=== PATIENT | male | born 1975 | race African-American/Black ===

== ENCOUNTER 2017-10-24 08:53 | Emergency (ER) | payer SELFPAY ==
--- NOTE | 2017-10-24 10:15 | RAD ---
PA AND LATERAL CHEST: History: Cough. FINDINGS: The heart size is normal. The lungs are expanded without focal areas of consolidation, pneumothorax, or pleural effusions. No acute osseous abnormalities are seen. IMPRESSION: No radiographic evidence of acute cardiopulmonary process. POS: [facility]
== END 2017-10-24 10:10 | disposition home or self-care (01) ==
LOC: ERS 08:53
DX: J40 Bronchitis, not specified as acute or chronic (principal); I10 Essential (primary) hypertension; F17.210 Nicotine dependence, cigarettes, uncomplicated
CPT/HCPCS: 71046; 87081; 87430; 87804

== ENCOUNTER 2018-09-23 06:15 | Emergency (ER) | payer SELFPAY | END 2018-09-23 10:07 | disposition left against medical advice (07) | LOC: ERS 06:15 | DX: Z53.21 Procedure and treatment not carried out due to patient leaving prior to being seen by health care provider (principal) | CPT/HCPCS: 93005 ==

== ENCOUNTER 2019-01-17 23:02 | Emergency (ER) | payer SELFPAY ==
[~2019-01-17 23:02] MED LIST: ISOVUE-370 76%-LOCM 1 ML ONE
[2019-01-17 23:19] LABS: #Basophils 0.1 thou/uL (0.0-0.2); #Eosinphils 0.5 thou/uL (0.0-0.7); #Lymphocytes 2.1 thou/uL (1.20-3.40); #Monocytes 0.5 thou/uL (0.11-0.59); #Neutrophils 3.4 thou/uL (1.40-6.50); %Basophils 1.5 % (0.0-1.0); %Eosinophils 8.1 % (0.0-10.0); %Lymphocytes 31.4 % (21.0-51.0); %Monocytes 7.6 % (0.0-10.0); %Neutrophils 51.4 % (42.0-75.0); Hemoglobin 15.3 g/dL (14.0-18.0); Mean Corpuscular HGB CONC 35.3 g/dL (32.0-36.0); Mean Corpuscular Hemoglobin 28.9 pg (27.0-31.0); Mean Corpuscular Volume 81.7 fL (78.0-98.0); Platelet Count 227 thou/uL (130-400); RBC Distribution Width 12.8 % (11.5-14.5); White Blood Cell (WBC) Count 6.7 thou/uL (4.8-10.8)
[2019-01-17 23:25] LABS: INR-International Normal Ratio 0.9; PTT 27.3 SEC (22.9-36.1); Prothrombin Time 12.2 SEC (12.0-14.7)
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
[2019-01-17 23:41] LABS: ALT (SGPT) 24 U/L (8-55); AST (SGOT) 27 U/L (5-34); Albumin 4.5 g/dL (3.5-5.0); Alkaline Phosphatase 114 U/L (40-150); Anion Gap 15 mmol/L (10-20); BUN (Urea Nitrogen) 17 mg/dL (8.9-20.6); Bilirubin, Total 0.2 mg/dL (0.2-1.2); Calc. Creatinine Clearance 0 mL/min (70-130); Calcium 9.9 mg/dL (7.8-10.44); Carbon Dioxide 23 mmol/L (22-29); Chloride 104 mmol/L (98-107); Estimated GFR-MDRD 89; Globulin 3.9 g/dL (2.4-3.5); Glucose 101 mg/dL (70-105); Potassium 3.4 mmol/L (3.5-5.1); Protein, Total 8.4 g/dL (6.0-8.3); Sodium 139 mmol/L (136-145)
== END 2019-01-18 00:30 | disposition home or self-care (01) ==
LOC: ERS 23:02
DX: S31.010A Laceration without foreign body of lower back and pelvis without penetration into retroperitoneum, initial encounter (principal); F17.200 Nicotine dependence, unspecified, uncomplicated; X99.1XXA Assault by knife, initial encounter
CPT/HCPCS: 12001; 71260; 74177; 80053; 85025; 85610; 85730; 86850; 86900; 86901; G0390; Q9966

== ENCOUNTER 2022-06-03 09:06 | Emergency (ER) | payer SELFPAY ==
[2022-06-03] MEDS ORDERED: hydrALAZINE 20 MG/ML VIAL ONE (09:19)
[2022-06-03 09:36] LABS: Actual Bicarbonate (HCO3a) 24.7 mEq/L (22-28); Base Excess (BEa) -1.8 mEq/L (-2.0 to +3.0); CO2 Tension 48.8 mmHg (35.0-45.0); Calcium, Ionized (arterial) 1.08 mmol/L (1.12-1.30); Carboxyhemoglobin (COHb) 10.6 gm% (0.0-3.0); Hemoglobin (Hb) 14.4 g/dL (14.0-18.0); Potassium - ABG Lab 3.13 mmol/L (3.70-5.30); pH, Arterial 7.32 (7.35-7.45)
[2022-06-03 09:37] LABS: Puncture Site LBA
[2022-06-03 09:44] LABS: #Lymphocytes 1.4 thou/uL (1.20-3.40); #Monocytes 0.7 thou/uL (0.11-0.59); #Neutrophils 5.5 thou/uL (1.40-6.50); %Basophils 0.4 % (0.0-1.0); %Eosinophils 0.1 % (0.0-10.0); %Monocytes 8.7 % (0.0-10.0); %Neutrophils 72.8 % (42.0-75.0); Hemoglobin 14.1 g/dL (14.0-18.0); Mean Corpuscular Hemoglobin 29.7 pg (27.0-31.0); Mean Corpuscular Volume 84.8 fl (78.0-98.0); Mean Platelet Volume 10.1 fL (7.4-10.4); Platelet Count 168 10x3/uL (130-400); RBC Distribution Width 13.1 % (11.5-14.5); Red Blood Cell (RBC) Count 4.75 mill/uL (4.70-6.10); White Blood Cell (WBC) Count 7.6 10x3/uL (4.8-10.8)
[2022-06-03 09:58] LABS: ALT (SGPT) 18 U/L (8-55); AST (SGOT) 25 U/L (5-34); Albumin 4.3 g/dL (3.5-5.0); Alkaline Phosphatase 56 U/L (40-110); Anion Gap 14 mmol/L (10-20); BUN (Urea Nitrogen) 21 mg/dL (8.9-20.6); Bilirubin, Total 0.6 mg/dL (0.2-1.2); Calc. Creatinine Clearance 0 mL/min (70-130); Calcium 8.7 mg/dL (7.8-10.44); Carbon Dioxide 24 mmol/L (22-29); Chloride 104 mmol/L (98-107); Estimated GFR 75; Globulin 3.1 g/dL (2.4-3.5); Glucose 132 mg/dL (70-105); Potassium 3.2 mmol/L (3.5-5.1); Protein, Total 7.4 g/dL (6.0-8.3); Sodium 139 mmol/L (136-145)
[2022-06-03 10:12] LABS: Acetaminophen Less than 10.0 mcg/mL (10.0-30.0); Alcohol Less than 10 mg/dL (Less than 10); Salicylate Less than 8.0 mg/dL (15.0-30.0)
[2022-06-03 11:46] LABS: Amphetamine Not Detected (NotDetected); Barbiturates Screen Not Detected (NotDetected); Benzodiazepine Screen Not Detected (NotDetected); Cocaine Metabolite Screen Detected (NotDetected); Methadone Not Detected (NotDetected); Methamphetamine Not Detected (NotDetected); Opiate Screen Not Detected (NotDetected); Oxycodone Screen Not Detected (NotDetected); Phencyclidine (PCP) Not Detected (NotDetected); THC/Cannabinoid Screen Not Detected (NotDetected); Tricyclic Screen Not Detected (NotDetected)
== END 2022-06-03 12:18 | disposition home or self-care (01) ==
LOC: ERS 09:06
DX: F14.10 Cocaine abuse, uncomplicated (principal); R06.00 Dyspnea, unspecified
CPT/HCPCS: 36600; 71045; 80053; 80306; 80307; 82805; 83880; 84443; 84484; 85025; 93005; 96374; J0360